=== PATIENT | male | born 1985 | race Caucasian/White ===

== ENCOUNTER → 2019-11-05 | Outpatient (CLI) | payer OTHER ==
--- NOTE | 2019-11-05 16:19 | REP ---
Clinical: Pain. Technique: Two views of the left clavicle. Findings: While no definite acute fractures appreciated, a subtle injury to the mid clavicular shaft cannot be excluded based on current images. Correlation with physical examination, point of tenderness and mechanism of injury may be warranted. The acromioclavicular and glenohumeral joints appear intact and normal. Surrounding soft tissues are unremarkable. Impression: No definite acute clavicle injury. As above. Electronically Signed by Pavel Terry MD 11/05/2019 04:11 P
== END ==
LOC: M WUC 15:40
PROVIDERS: ATTEND Physician Assistant
DX: M25.512 Pain in left shoulder (principal)